=== PATIENT | female | born 1990 | race Caucasian/White ===

== ENCOUNTER 2021-03-11 09:09 | Observation (INO) | payer OTHER, SELFPAY ==
--- NOTE | ~2021-03-11 | CT_ITS ---
EXAMINATION: CT ABDOMEN AND PELVIS WITH CONTRAST CLINICAL INFORMATION: At pain, nausea and vomiting with diarrhea times months. Rule out IBD. COMPARISON: None TECHNIQUE: Multidetector volumetric images were obtained from the superior aspect of the liver through the pubic symphysis following administration 85 mL of Omnipaque 350 intravenous contrast. Sagittal and coronal reformatted images were obtained on the technologist's workstation. Oral contrast: No This CT examination was performed using dose optimization techniques as appropriate, variously including the following: *Automated exposure control *Adjustment of mA and/or kV according to patient size (this includes techniques or standardized protocols for targeted exams where dose is matched to indication/reason for exam; i.e. extremities or head) *Use of iterative reconstruction technique DLP: 360 mGy-cm FINDINGS: LUNG BASES: 3 mm triangular subpleural nodule left lower lobe axial image 3/7. LIVER, GALLBLADDER, AND BILIARY TREE: The liver is normal in size, shape, and attenuation. 3 mm nodule right hepatic lobe axial image 6/3 rest of the liver is unremarkable. The gallbladder is unremarkable with no evidence of radiopaque gallstones, gallbladder wall thickening, or obvious pericholecystic inflammatory changes. PANCREAS: Unremarkable. SPLEEN: Unremarkable. ADRENAL GLANDS: Unremarkable. KIDNEYS AND URETERS: The kidneys are normal in size, shape, and attenuation. No hydronephrosis, hydroureter, or calculi seen. No perinephric stranding. BLADDER: Unremarkable. GASTROINTESTINAL TRACT: Lack of oral contrast restricts evaluation of GI system. There is scattered stool and gas seen throughout the colon without any significant distention. There is an enlarged left lobe of small bowel with wall thickening and central hypodense area likely herniated proximal small bowel loop suspicious for intrasubstance. It is best visualized on axial image 50/3 and sagittal image 99/3.. ABDOMINAL WALL: No significant hernia is appreciated. LYMPH NODES: Normal. VASCULAR: Unremarkable. PELVIC VISCERA: There is small amount of free fluid in the pelvis. The uterus is anteverted no adnexal mass seen. There are small cysts in both ovaries. OSSEOUS STRUCTURES: Unremarkable. CT/CT abdomen pelvis w con IMPRESSION: Suspect small bowel intussusception left midabdomen. Lack of oral contraceptives restricts evaluation of small bowel and colon.
--- NOTE | ~2021-03-11 | XR_ITS ---
EXAMINATION: XR CHEST CLINICAL INFORMATION: Chest tightness. Rule out pneumonia. COMPARISON: None TECHNIQUE: 2 views of the chest were obtained. FINDINGS: The cardiac and mediastinal contours are normal. The lungs are well inflated. There is a 1 cm left upper lobe nodule. There are bilateral 1 cm symmetric nodules in the mid lung overlying the anterior fifth ribs that may represent nipple shadows. The lungs are otherwise clear. There is no pleural effusion or pneumothorax. Bony structures are unremarkable. XR/XR chest 2V IMPRESSION: 1 cm left upper lobe nodule. Follow-up chest CT scan recommended.
[2021-03-11 09:23] VITALS: BP 132/69; PULSE 55; RESP 12; TEMP 36.7; O2SAT 100; BMI 20.5
--- NOTE | 2021-03-11 10:29 | ECG_ITS ---
Test Reason : CHEST PAIN Blood Pressure : / mmHG Vent. Rate : 059 BPM Atrial Rate : 059 BPM P-R Int : 136 ms QRS Dur : 080 ms QT Int : 498 ms P-R-T Axes : 080 083 041 degrees QTc Int : 493 ms Sinus bradycardia Prolonged QT Abnormal ECG No previous ECGs available Referred By: Burak Camacho Electronically Signed By:IVAN RICHEY MD
--- NOTE | 2021-03-11 10:38 | ED_ITS ---
HPI - Nausea/Vomiting/Diarrhea General Chief complaint: Nausea/Vomiting/Diarrhea Stated complaint: vomitting chills Time Seen by Provider: 03/11/21 10:27 Source: patient and family ( mother, Anbael) Mode of arrival: ambulatory Limitations: no limitations History of Present Illness HPI Narrative: 30-year-old female who presents emergency department for evaluation of nausea, vomiting, diarrhea, chills, sweats and weight loss. The patient states she has been having episodes of nausea, vomiting and diarrhea for approximately 1 year. She states that she gets these episodes monthly. She states that she has been having the symptoms since March 02, 2021 ( 9 days). She states that her symptoms have gotten worse over the past 24 hours. She states that she has been Vomiting 2 to 3 times a day but over the past 24 hours she has had too numerous to count episodes of vomiting. she denies any blood in the emesis. She has had 1 episode of watery stool daily. She has denied blood or mucus noted in her diarrhea. She states that she has a diffuse burning sensation her abdomen which is constant but [id number] in intensity. She has also developed tightness in her chest which she states is worse with elijah thing, has been present for 1-2 days, intermittent and is mild. She denied fever but she states she has had sweats and chills. The patient states that the symptoms occur around her menstrual cycle. She denies any recent antibiotic use or recent travel. She states that her weight fluctuates but she has lost approximately 20 lb, she weighed 140 lb and now she weighs 120 lb. The patient does vape THC 5 times daily. Related Data Allergies Allergy/AdvReac Type Severity Reaction Status Date / Time No Known Allergies Allergy Verified 03/11/21 10:28 Review of Systems Review of Systems: Yes all other systems are reviewed and are negative [facility] Past Medical History [facility] Narrative: Past medical history: Anemia. Past surgical history: None. Social history: The patient vapes THC 5 times a day. She denies alcohol use. She denies any other drug use besides the THC. Social History Social History Alcohol intake: never Patient Tobacco Use Status: Never used Tobacco Use of substances other than those prescribed or required for medical reasons: Yes Substance Use Type: Marijuana Advance Directives: No Advance Directives Information Provided: No Patient : No Physical Exam Vital Signs: Vital Signs: Last Vital Signs Temp 98.6 F 03/11/21 13:08 Pulse 54 03/11/21 16:16 Resp 12 03/11/21 16:16 BP 108/60 03/11/21 16:16 Pulse Ox 99 03/11/21 16:16 Body Mass Index 20.5 Const: General: cooperative Orientation/consciousness: oriented to person and oriented to place Limitations: no limitations HENMT: Head: Yes normal to inspection, Yes normocephalic and Yes atraumatic Ears: external ears normal General nose exam: Normal external nose present Face and sinus: Yes normal facial exam Mouth: Normal oral and palatal mucosa present Throat: Yes posterior oropharynx normal Eyes: Periorbital: periorbital findings normal Eyelids: Yes eyelids normal Conjunctivae: conjunctivae normal Sclerae: sclerae normal Corneas: corneas normal Pupils: Equal, round and reactive pupils present Direct Ophthalmoscopy: normal light reflex Neck: Neck: Yes full ROM, Yes no lymphadenopathy, Yes no meningeal signs, Yes trachea midline and Yes supple Chest: Chest palpation & inspection: normal inspection of the chest and normal palpation of entire chest wall Resp: Effort & Inspection: normal respiratory effort and able to speak in complete sentences Auscultation: clear to auscultation bilaterally Cardio: Rate: regular rate Rhythm: regular rhythm Heart sounds: S1 normal heart sound present, S2 normal heart sound present and no murmurs GI: Inspection: Yes normal to inspection Palpation (GI): Soft to palpation, nontender, no guarding, not rigid and No hepatosplenomegaly present : General: Yes no CVA tenderness Back/Spine/Pelvis: Back: no CVA tenderness Cervical Spine: normal cervical lordosis Thoracic/Lumbar Spine: thoracic and lumbar spine normal to inspection Skin: Lesions: no lesions Rashes: no rashes Wounds: no wounds Neuro: General: oriented to person, oriented to place and no meningeal signs Cranial nerves: Yes CN's II-XII intact bilaterally and Yes Equal, round and reactive pupils present Cognition (Neuro): normal cognition Motor exam (neuro): 5/5 motor strength present throughout Extrem: General: Yes normal to inspection and Yes full ROM Psych: Appearance: well kempt Mental Status: mental status grossly normal Speech and movement: Normal speech and movement present Affect: normal affect Attitude: cooperative Thought process: Normal thought process present Thought content: Normal thought content present Course Course Course Narrative: 30-year-old female who presents emergency department for evaluation of nausea, vomiting, diarrhea, abdominal pain and weight loss. Patient has had episodic symptoms for 1 year, with the symptoms occurring monthly. The patient has had symptoms for approximately 9 days with too numerous to count episodes of vomiting over the past 24 hours. Patient also reports a 20 lb weight loss. The patient does vape THC 5 times daily. Physical examination was unremarkable. Differential includes but is not limited to inflammatory bowel disease and cyclic vomiting syndrome, cannabis hyperemesis syndrome. I did order CBC, CMP, lipase, stool cultures, stool C diff, Chest x- ray, EKG and CT scan of the abdomen pelvis with IV contrast. Patient's nausea and vomiting was treated with Reglan 10 mg IV and Benadryl 50 mg IV. Her abdominal discomfort was treated with Toradol 30 mg IV. 1644: the patient's abdominal pain did improve with the IV Toradol but her nausea had minimal improvement with IV Reglan and Benadryl. She was ordered to get Haldol 2.5 mg IV and Benadryl 25 mg IV with significant improvement of her symptoms.The patient's laboratory evaluation revealed low WBC of 4300 and anemia with an H&H of 10.2 and 34.4. Patient's chloride was high at 110 and bicarb was low at 21 this is consistent with her vomiting and diarrhea. The patient's CT seen in the abdomen pelvis with IV contrast is consistent with a left lower quadrant intussusception. I did discuss the patient's presentation with the on- call surgeon, Dr. Parnell ED evaluated the patient in the emergency department. He will admit the patient overnight for further treatment and diagnostic evaluation. MDM - Nausea/Vomiting/Diarrhea Lab Data Result diagrams: 03/11/21 10:51 03/11/21 10:51 Labs: Lab Results 03/11/21 03/11/21 03/11/21 Range/Units 10:51 10:51 10:51 WBC 4.3 L (4.8-10.8) X10*3/uL RBC 4.91 (4.20-5.50) X10*6/uL Hgb 10.2 L (12.0-16.0) g/dl Hct 34.4 L (37-47) % MCV 70.1 L (80-98) fL MCH 20.8 L (27.0-33.0) pg MCHC 29.7 L (31.0-35.0) g/dl RDW 15.8 (11.0-16.0) % Plt Count 263 (160-400) X10*3/uL MPV 9.4 (9.4-12.3) fL Immature Gran % (Auto) 0.2 (0.0-0.4) % Neut % (Auto) 83.0 H (45-73) % Lymph % (Auto) 8.9 L (20-40) % [place] % (Auto) 7.7 (2-11) % Eos % (Auto) 0.0 (0-4) % Baso % (Auto) 0.2 (0-2) % Lymph # (Auto) 0.4 L (1.2-4.9) X10*3/uL [place] # (Auto) 0.3 (0.1-1.2) X10*3/uL Eos # (Auto) 0.0 (0.0-0.4) X10*3/uL Baso # (Auto) 0.0 (0.0-0.2) X10*3/uL Abs Immat Gran (auto) 0.01 (0.00-0.03) X10*3/uL Absolute Neuts (auto) 3.5 (2.0-8.3) X10*3/uL Absolute Nucleated RBC 0.000 (0.0-0.012) X10*3/uL Nucleated RBC % (auto) 0.0 (0.0-0.2) /100WBC Sodium 141 (135-145) mmol/L Potassium 3.4 (3.3-5.1) mmol/L Chloride 110 H (96-108) mmol/L Carbon Dioxide 21 L (22-29) mmol/L Anion Gap 13 (12-20) BUN 16 (9-16) mg/dL Creatinine 0.77 (0.5-1.4) mg/dL Estim Creat Clear Calc 91.0 Estimated GFR > 60 Random Glucose 110 (60-115) mg/dL Calcium 9.6 (8.4-10.2) mg/dL Total Bilirubin 0.7 (0.0-1.0) mg/dL AST 13 (5-31) U/L ALT 8 (0-31) U/L Alkaline Phosphatase 58 (39-117) U/L Total Protein 7.3 (6.5-8.0) g/dL Albumin 4.5 (3.5-5.0) g/dL Lipase 12 (8-78) U/L Beta HCG, Quant < 2 mIU/mL Discharge Plan Discharge Clinical Impression: Intussusception intestine, Cyclic vomiting syndrome, Acute dehydration Patient Disposition: Admitted As Inpatient
[2021-03-11] MEDS: diphenhydrAMINE HCL 50 MG/ML VIAL IVPUSH (11:04)
[2021-03-11] MEDS: Ketorolac Tromethamine 30 MG/ML VIAL IVPUSH (11:05)
[2021-03-11] MEDS: 0.9 % Sodium Chloride 1,000 ML 999 ML IV ×2 (11:06→13:26)
[2021-03-11] MEDS: Metoclopramide HCl 10 MG/2 ML VIAL IVPUSH (11:08)
--- NOTE | 2021-03-11 11:09 | PC.NURSE ---
Pt vomiting. IV placed, labs obtained, and pt medicated for pain and nausea. IVF running.
[2021-03-11 11:17] LABS: MANUAL DIFF FLAG NO
[2021-03-11 11:20] LABS: Basophils Percent Auto 0.2 % (0-2); Hematocrit 34.4 % (37-47); Hemoglobin 10.2 g/dl (12.0-16.0); Imm Gran Abs Auto 0.01 X10*3/uL (0.00-0.03); Imm Gran Pct Auto 0.2 % (0.0-0.4); Lymphocytes Absolute Auto 0.4 X10*3/uL (1.2-4.9); Lymphocytes Percent Auto 8.9 % (20-40); Mean Corpuscular HGB Conc 29.7 g/dl (31.0-35.0); Mean Corpuscular Hemoglobin 20.8 pg (27.0-33.0); Mean Corpuscular Volume 70.1 fL (80-98); Mean Platelet Volume 9.4 fL (9.4-12.3); Monocytes Absolute Auto 0.3 X10*3/uL (0.1-1.2); Monocytes Percent Auto 7.7 % (2-11); Neutrophils Absolute Auto 3.5 X10*3/uL (2.0-8.3); Platelet Count 263 X10*3/uL (160-400); Red Blood Count 4.91 X10*6/uL (4.20-5.50); Red Cell Distribution Width 15.8 % (11.0-16.0); White Blood Count 4.3 X10*3/uL (4.8-10.8)
[2021-03-11 11:43] VITALS: BP 129/51; PULSE 60; RESP 20; TEMP 36.4; O2SAT 100
[2021-03-11 11:53] LABS: Alanine Aminotransferase 8 U/L (0-31); Albumin Level 4.5 g/dL (3.5-5.0); Alkaline Phosphatase 58 U/L (39-117); Anion Gap 13 (12-20); Aspartate Amino Transferase 13 U/L (5-31); Bilirubin Total 0.7 mg/dL (0.0-1.0); Blood Urea Nitrogen 16 mg/dL (9-16); Calcium 9.6 mg/dL (8.4-10.2); Carbon Dioxide 21 mmol/L (22-29); Chloride 110 mmol/L (96-108); Estimated Glomerular Filt Rate > 60; Glucose Random 110 mg/dL (60-115); Lipase 12 U/L (8-78); Potassium 3.4 mmol/L (3.3-5.1); Sodium 141 mmol/L (135-145); Total Protein 7.3 g/dL (6.5-8.0)
[2021-03-11 11:59] LABS: HCG Quantitative < 2 mIU/mL
[2021-03-11 13:08] VITALS: BP 151/60; PULSE 54; RESP 16; TEMP 37; O2SAT 100
[2021-03-11] MEDS: iohexoL 350 MG/ML 100 ML INFUS..BTL IV (13:10)
[2021-03-11] MEDS: diphenhydrAMINE HCL 50 MG/ML VIAL 25 MG IVPUSH (13:23)
[2021-03-11] MEDS: Haloperidol Lactate 5 MG/ML VIAL 2.5 MG IV (13:25)
--- NOTE | 2021-03-11 13:26 | PC.NURSE ---
Ptstill nauseated. IV haldol and benedryl given.
[2021-03-11 16:16] VITALS: BP 108/60; PULSE 54; RESP 12; O2SAT 99
--- NOTE | 2021-03-11 16:48 | P.HPGS_ITS ---
History of Present Illness History of Present Illness Date of Service: 03/12/21 Chief complaint: vomitting chills Narrative: Ana Luisa Mustafa is a 30 year old female who came to the ED today because of multiple episodes of vomitting. She says that she had vomitted about 5 times today before coming to the ED. She states she has been vomitting everyday for about almost 2 weeks now. She normally has about 2-3 episodes everyday. She does admit to regularly vaping marijuana and has done so for many months now. She says she does not have any abdominal pain. She says she has good BMs and continues to pass flatus. Review of Systems Constitutional: Constitutional: Denies chills and Denies fever(s) Cardiovascular: Cardiovascular: Denies chest pain, Denies dyspnea and Denies dyspnea on exertion Respiratory: Respiratory: Denies cough, Denies dyspnea and Denies dyspnea on exertion Gastrointestinal: Gastrointestinal: Denies hematochezia and Denies change in bowel habits Genitourinary: Genitourinary: Denies hematuria Musculoskeletal: Musculoskeletal: Denies back pain and Denies limited range of motion Neurologic: Denies focal weakness and Denies convulsions Psychiatric: Psychiatric: Denies depression and Denies mood swings PMFSH Past Medical History Medical History Marijuana abuse, continuous Social History Social History Alcohol intake: never Patient Tobacco Use Status: Never used Tobacco Smoked in Last 30 Days: No Patient Interested in Nicotine Replacement: No Patient Given Instructions on How to Stop Smoking: No Second Hand Smoke Exposure: No Use of substances other than those prescribed or required for medical reasons: Yes Substance Use Type: Marijuana Advance Directives: No Advance Directives Information Provided: No Advance Directives on File: No Patient : No service: No Current occupational status: employed Meds Allergies Allergy/AdvReac Type Severity Reaction Status Date / Time No Known Allergies Allergy Verified 03/11/21 10:28 Active Medications: Current Medications Generic Name Dose Route Start Last Admin Trade Name Freq PRN Reason Stop Dose Admin Promethazine HCl 6.25 mg/ 50.25 mls @ 201 mls/hr 03/11/21 16:45 Sodium Chloride IV Q6H PRN Nausea Lactated Ringer's 1,000 mls @ 80 mls/hr 03/11/21 17:00 Lr IVCONT .[id number] HENRY Ondansetron HCl 4 mg 03/11/21 16:45 Ondansetron Hcl 4 Mg/2 Ml Vial IVPUSH Q8H PRN nausea Sodium Chloride 3 ml 03/12/21 00:00 0.9 % Sodium Chloride Flush 3 Ml Syringe IVFLUSH QSHIFT HENRY Physical Exam Vital Signs: Vital Signs: Last Vital Signs Temp 98.6 F 03/11/21 13:08 Pulse 54 03/11/21 16:16 Resp 12 03/11/21 16:16 BP 108/60 03/11/21 16:16 Pulse Ox 99 03/11/21 16:16 Body Mass Index 20.5 Const: General: comfortable and no acute distress Orientation/cons ciousness: patient oriented x3 Neck: Neck: Yes no lymphadenopathy Resp: Auscultation: clear to auscultation bilaterally Cardio: Rhythm: regular rhythm GI: Other: not distended Palpation (GI): Soft to palpation, nontender and no guarding Neuro: General: patient oriented x3 Results Results Labs: Short CBC 03/11/21 Range/Units 10:51 WBC 4.3 L (4.8-10.8) X10*3/uL Hgb 10.2 L (12.0-16.0) g/dl Hct 34.4 L (37-47) % Plt Count 263 (160-400) X10*3/uL BMP 03/11/21 10:51 Sodium 141 Potassium 3.4 Chloride 110 H Carbon Dioxide 21 L BUN 16 Creatinine 0.77 Calcium 9.6 Liver Function 03/11/21 Range/Units 10:51 Total Bilirubin 0.7 (0.0-1.0) mg/dL AST 13 (5-31) U/L ALT 8 (0-31) U/L Alkaline Phosphatase 58 (39-117) U/L Albumin 4.5 (3.5-5.0) g/dL Abdominal x-ray: report reviewed and image reviewed CT scan - pelvis: report reviewed and image reviewed Assessment and Plan (1) Cyclic vomiting syndrome: Status: Acute She has had multiple episodes of vomitting today, but has had these episodes for almost 2 weeks. She this this comes in waves . She denies any abdominal pain. Her abdominal exam is very benign. SHe does not have any tenderness. Her Ct scan shows suggestion of intussusception. However, her overall clinical findings seem to be more consistent with cyclical vomitting secondary to marijuana vaping. She has responded well to Haldol given in the ED. It is best to admit her overnight for observation in view of her CT scan findi ngs. She currently has a very benign exam and is clinically not obstructed. I explained the plan to he and her mother at bedside and they understand. (2) Intussusception intestine: Status: Acute Her CT scan does not suggest an obstructive pattern. I explained to her that we often see this picture of intussusception with an uncertain clinical significance. She has very benign abdominal findings. the Ct scan image may be due to normal peristaltic movement of her small intestines. She will be on clear liquids tonight and reevaluate her in the morning. Quality Stroke Does the patient have a stroke diagnosis?: No VTE Prior VTE?: No VTE Risk Level:: Medical - low VTE Device Contraindication: N/A - Device Ordered VTE Drug Contraindication: Treatment Not Indicated Procedures Date of Service Date of Service: 03/11/21
[2021-03-11 17:31] VITALS: BP 102/49; PULSE 49; RESP 18; TEMP 36.8; O2SAT 99
--- NOTE | 2021-03-11 17:32 | PC.NURSE ---
Pt aware of admit plan. Resting comfortably. Denies nausea at this time. Ice chips given.
[2021-03-11] MEDS: Lactated Ringers 1,000 ML 80 ML IVCONT (17:38)
[2021-03-11 21:16] VITALS: BP 102/43; PULSE 57; RESP 17; TEMP 36.9; O2SAT 99
[2021-03-11] MEDS: ondansetron HCL 4 MG/2 ML VIAL IVPUSH (21:25)
[2021-03-11 21:41] LABS: Glucose Urine UA NEG (NEG); Leukocyte Esterase Urine NEG (NEG); Nitrite Urine NEG (NEG); Urine Blood NEG (NEG); Urine Ketones 40 MG/DL (NEG); Urine Protein NEG (NEG-TRACE)
[2021-03-11 21:42] LABS: Appearance Urine CLEAR; Color Urine YELLOW
[2021-03-11 22:24] LABS: COVID-19 Test Negative (Negative)
[2021-03-12] MEDS: Lactated Ringers 1,000 ML 80 ML IVCONT (05:57)
[2021-03-12 06:48] LABS: Hemoglobin 8.7 g/dl (12.0-16.0); Mean Corpuscular Volume 72.5 fL (80-98); Mean Platelet Volume 9.7 fL (9.4-12.3); Platelet Count 200 X10*3/uL (160-400); Red Blood Count 4.14 X10*6/uL (4.20-5.50); Red Cell Distribution Width 16.2 % (11.0-16.0); White Blood Count 3.7 X10*3/uL (4.8-10.8)
[2021-03-12 07:20] LABS: Anion Gap 10 (12-20); Blood Urea Nitrogen 13 mg/dL (9-16); Calcium 8.6 mg/dL (8.4-10.2); Carbon Dioxide 22 mmol/L (22-29); Chloride 113 mmol/L (96-108); Estimated Glomerular Filt Rate > 60; Glucose Random 89 mg/dL (60-115); Sodium 141 mmol/L (135-145)
[2021-03-12 08:00] VITALS: BP 112/60; PULSE 52; RESP 18; TEMP 36.9; O2SAT 98
[2021-03-12] MEDS: 0.9 % Sodium Chloride Flush 3 ML SYRINGE IVFLUSH (08:35)
--- NOTE | 2021-03-12 08:41 | PM.PNGS ---
Subjective Subjective Date of Service: 03/12/21 Interval history: feels well no vomitting since admission no abdl pain states she is ready to go home Physical Exam Vital Signs: Vital Signs: Last Vital Signs Temp 98.4 F 03/12/21 08:00 Pulse 52 03/12/21 08:00 Resp 18 03/12/21 08:00 BP 112/60 03/12/21 08:00 Pulse Ox 98 03/12/21 08:00 Body Mass Index 20.5 Laboratory Results - last 24 hr 03/11/21 03/11/21 03/11/21 10:51 10:51 10:51 WBC 4.3 L RBC 4.91 Hgb 10.2 L Hct 34.4 L MCV 70.1 L MCH 20.8 L MCHC 29.7 L RDW 15.8 Plt Count 263 MPV 9.4 Immature Gran % (A uto) 0.2 Neut % (Auto) 83.0 H Lymph % (Auto) 8.9 L [place] % (Auto) 7.7 Eos % (Auto) 0.0 Baso % (Auto) 0.2 Lymph # (Auto) 0.4 L [place] # (Auto) 0.3 Eos # (Auto) 0.0 Baso # (Auto) 0.0 Abs Immat Gran (au to) 0.01 Absolute Neuts (au to) 3.5 Absolute Nucleated RBC 0.000 Nucleated RBC % (a uto) 0.0 Sodium 141 Potassium 3.4 Chloride 110 H Carbon Dioxide 21 L Anion Gap 13 BUN 16 Creatinine 0.77 Estim Creat Clear Calc 91.0 Estimated GFR > 60 Random Glucose 110 Calcium 9.6 Total Bilirubin 0.7 AST 13 ALT 8 Alkaline Phosphata se 58 Total Protein 7.3 Albumin 4.5 Lipase 12 Beta HCG, Quant < 2 Urine Color Urine Appearance Urine pH Ur Specific Gravit y Urine Protein Urine Glucose (UA) Urine Ketones Urine Blood Urine Nitrite Ur Leukocyte Viviana ase COVID-19 ([facility]) COVID-19 Clin Com 03/11/21 03/11/21 03/12/21 21:29 21:58 06:15 WBC 3.7 L RBC 4.14 L Hgb 8.7 L Hct 30.0 L MCV 72.5 L MCH 21.0 L MCHC 29.0 L RDW 16.2 H Plt Count 200 MPV 9.7 Immature Gran % (A uto) Neut % (Auto) Lymph % (Auto) [place] % (Auto) Eos % (Auto) Baso % (Auto) Lymph # (Auto) [place] # (Auto) Eos # (Auto) Baso # (Auto) Abs Immat Gran (au to) Absolute Neuts (au to) Absolute Nucleated RBC 0.000 Nucleated RBC % (a uto) 0.0 Sodium Potassium Chloride Carbon Dioxide Anion Gap BUN Creatinine Estim Creat Clear Calc Estimated GFR Random Glucose Calcium Total Bilirubin AST ALT Alkaline Phosphata se Total Protein Albumin Lipase Beta HCG, Quant Urine Color YELLOW Urine Appearance CLEAR Urine pH 7.0 Ur Specific Gravit y 1.020 Urine Protein NEG Urine Glucose (UA) NEG Urine Ketones 40 Urine Blood NEG Urine Nitrite NEG Ur Leukocyte Viviana ase NEG COVID-19 (GUILLERMO) Negative COVID-19 Clin Com See Note 03/12/21 06:15 WBC RBC Hgb Hct MCV MCH MCHC RDW Plt Count MPV Immature Gran % (A uto) Neut % (Auto) Lymph % (Auto) [place] % (Auto) Eos % (Auto) Baso % (Auto) Lymph # (Auto) [place] # (Auto) Eos # (Auto) Baso # (Auto) Abs Immat Gran (au to) Absolute Neuts (au to) Absolute Nucleated RBC Nucleated RBC % (a uto) Sodium 141 Potassium 4.0 Chloride 113 H Carbon Dioxide 22 Anion Gap 10 L BUN 13 Creatinine 0.70 Estim Creat Clear Calc 100.0 Estimated GFR > 60 Random Glucose 89 Calcium 8.6 D Total Bilirubin AST ALT Alkaline Phosphata se Total Protein Albumin Lipase Beta HCG, Quant Urine Color Urine Appearance Urine pH Ur Specific Gravit y Urine Protein Urine Glucose (UA) Urine Ketones Urine Blood Urine Nitrite Ur Leukocyte Viviana ase COVID-19 (GUILLERMO) COVID-19 Clin Com Const: General: comfortable and no acute distress Resp: Effort & Inspection: normal respiratory effort Cardio: Rate: regular rate GI: Inspection: No distended Palpation (GI): Soft to palpation, not firm, nontender and no guarding Progress Note: A&P Assessment and plan (1) Cyclic vomiting syndrome: Status: Acute Assessment and Plan: completely asymptomatic clinically not obstructed, exam not c/w intussusception symptoms c/w cyclic vomitting from heavy cannabis vaping diet as tolerated Hg low - she says she has known anemia; no signs of bleeding repeat H/H plan to dc home later today if Hg steady Fall Risk Details Current Medications: Current Medications Generic Name Dose Route Start Last Admin Trade Name Freq PRN Reason Stop Dose Admin Promethazine HCl 6.25 mg/ 50.25 mls @ 201 mls/hr 03/11/21 16:45 Sodium Chloride IV Q6H PRN Nausea Lactated Ringer's 1,000 mls @ 80 mls/hr 03/11/21 17:00 03/12/21 05:57 Lr IVCONT 80 mls/hr .[id number] HENRY Administration Ondansetron HCl 4 mg 03/11/21 16:45 03/11/21 21:25 Ondansetron Hcl 4 Mg/2 Ml Vial IVPUSH 4 mg Q8H PRN Administration nausea Sodium Chloride 3 ml 03/12/21 00:00 03/12/21 08:35 0.9 % Sodium Chloride Flush 3 Ml Syringe IVFLUSH 3 ml QSHIFT HENRY Administration Time Spent With Patient Time: Total time spent is greater than 50% in coordination of care (as documented) at patient's floor/unit and/or counseling patient: Time with patient: 15 - 24 minutes Procedures Date of Service Date of Service: 03/12/21 Quality Stroke Does the patient have a stroke diagnosis?: No VTE Prior VTE?: No VTE Risk Level:: Medical - low VTE Device Contraindication: N/A - Device Ordered VTE Drug Contraindication: Treatment Not Indicated
[2021-03-12 11:04] LABS: Hemoglobin 8.7 g/dl (12.0-16.0)
--- NOTE | 2021-03-12 12:46 | MHC.CM.PN ---
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 MET WITH PATIENT SHE IS ACTIVE, EMPLOYED AND INDEPENDENT IN ALL ADLS AND MOBILITY , SHE HAS NO VNA NO DME SERVICES SHE DOES REPORTS USING [employer] BUT THIS REPEATED EMESIS HAS NEVER HAPPENED TO HER BEFORE , SHE REPORTED SHE USES [employer] FOR HER INCREASING ANXIETY , SHE AGREED TO REFERRAL TOT [facility] [employer] TEAM FOR REFERRAL RECOMMENDATIONS DISCHARGE HOME PLANS FOR MEETING WITH THE CARES TEAM SW REWARDING REFERRAL INFORMATION , (PATIENT INSTRUCTED TO [facility] THEY SEE HER, AND IF NOT THEN TO CALL THE MENTAL HEALTH SERVICES IN THE BACK OF HER INSURANCE CARD OR CHECK ON COMPUTER FOR LIST OF AGENCIES
--- NOTE | 2021-03-13 11:29 | P.DS_ITS ---
DS: Providers Provider Date of Service: 03/13/21 Date of admission: 03/11/21 16:44 Primary care physician: Juan Manuel العلي MD Consults: 03/12/21 10:59 Consult to Care Team Routine Comment: Reason for consultation: pTIENT WITH INCREASING ANXIETY AND WOULD LIKE TO TALK WITH SOMEONE referral DS: Diagnosis Discharge Diagnosis (1) Cyclic vomiting syndrome: Status: Acute Problem details: 30-year-old female admitted by the ER because of multiple as was the vomiting for about 10 days. Her history breast with significant for heavy marijuana vaping. She had a CAT scan done showing what appeared to be question of intussusception although clinically, she was not obstructed. Furthermore, her CAT scan did not show any suggestion of small-bowel obstruction proximal to this intussusception. She had a very benign exam as well. She was admitted and kept on clear liquids. She was given Haldol in the ER for her cyclic vomiting syndrome in view of marijuana vaping. She improved significantly. She continue d to do well and her diet was advanced the following day. She tolerated this and she was therefore discharged. At the time of her discharge, she had remained asymptomatic and had good GI functions. (2) Intussusception intestine: Status: Acute Problem details: Her CAT scan was suggestive of small-bowel intussusception. However clinically, she was unobstructed and had a very benign exam without any pain or tenderness. It was likely that her CAT scan image was due to peristalsis of the small intestine. (3) Anemia: Status: Acute Problem details: she has a known history of anemia. Her hemoglobin was low but stable during her hospital stay. She was advised to discuss this again with her primary care physician. DS: Summary Time Spent with Patient Time attestation: Total time spent providing and/or coordinating discharge services: Discharge coordination time: Less than 30 minutes Quality: Stroke Does the patient have a stroke diagnosis?: No Physical Exam Vital Signs: Vital Signs: Last Vital Signs Temp 98.4 F 03/12/21 08:00 Pulse 52 03/12/21 08:00 Resp 18 03/12/21 08:00 BP 112/60 03/12/21 08:00 Pulse Ox 98 03/12/21 08:00 Body Mass Index 20.5 Const: General: comfortable and no acute distress Orientation/consciousness: patient oriented x3 Neck: Neck: Yes no lymphadenopathy Resp: Auscultation: clear to auscultation bilaterally Cardio: Rhythm: regular rhythm GI: Palpation (GI): Soft to palpation, nontender and no guarding Neuro: General: patient oriented x3 DS: Data Data Completed and Pending Completed studies during hospitalization [Text1]: CT scan of the abdomen pelvis Discharge Plan Discharge Patient Disposition: Home, Self-Care Referrals: Juan Manuel العلي MD [Primary Care Provider] - 1 Week Discharge Orders: Discharge Order (Routine); Ordered 03/12/21 Ordered By: Ceasar Parnell Diet: advance to usual diet Activity on Discharge: As tolerated Stand Alone Forms: Patient Portal Discharge page Care Plan Goals: cut down on cannabis use Health Concerns: cyclical vomitting from cannabis vaping Plan of Treatment: ffup with PCP Assessment: doing well, symptoms resolved Discharge Date/Time: 03/12/21 13:32
== END 2021-03-12 13:32 | disposition home or self-care (01) ==
LOC: HO.ED 16:48 → HO.EDOVER 21:27 → HO.S3 23:25
PROVIDERS: Admitting Provider Surgery; Emergency Provider Emergency Medicine Emergency Medical Services; PCP Internal Medicine; Visit Provider Surgery
DX: R11.15 Cyclical vomiting syndrome unrelated to migraine (principal); U07.0 Vaping-related disorder; F12.10 Cannabis abuse, uncomplicated; K56.1 Intussusception; D64.9 Anemia, unspecified; E86.0 Dehydration; R91.1 Solitary pulmonary nodule; R07.9 Chest pain, unspecified; R00.1 Bradycardia, unspecified; I45.81 Long QT syndrome; N83.202 Unspecified ovarian cyst, left side; N83.201 Unspecified ovarian cyst, right side
CPT/HCPCS: 36415; 71046; 74177; 80048; 80053; 81003; 83690; 84702; 85014; 85018; 85025; 85027; 87635; 93005; 96361; 96374; 96375; 96376; 99218; 99285; J1200; J1885; J2405; J2765; Q9967

== ENCOUNTER 2021-07-07 15:36 | Emergency (ER) | payer OTHER, SELFPAY ==
[2021-07-07 15:46] VITALS: BP 143/88; PULSE 52; RESP 18; TEMP 36.6; O2SAT 100; BMI 21.6
--- NOTE | 2021-07-07 16:26 | ED_ITS ---
HPI - Abdominal Pain General Chief Complaint: Abdominal Pain Stated Complaint: ?Dehydrated Time Seen by Provider: 07/07/21 16:15 Source: patient Mode of arrival: ambulatory Limitations: no limitations History of Present Illness HPI narrative: 30-year-old female who presents emergency department for evaluation of nausea, vomiting and abdominal pain that began this morning at 6:00 a.m.. Patient states that she has vomited multiple times, too numerous to count the episodes. She has not noticed any blood in the vomiting. She is complaining of lower abdominal burning like pain which is constant and is 4/10 at its worst. She denied fever, chills, chest pain, shortness of breath, frequency, urgency or dysuria. She has had no change in bowel movements. The patient was seen on March 03, 2021 for recurrent episodes of vomiting x1 year with a 20 lb weight loss. The patient at that time was felt to have cyclic vomiting syndrome secondary to marijuana use. The patient did have a possible intussusception seen on a CT scan done however clinically her symptoms did not appear to be consistent with intussusception. She was admitted overnight to the on-call surgeon, Dr. Parnell, kept on clear liquids improved and was discharged the next day. Patient states that she has significantly cut down on the amount of marijuana that she uses however she continues to vape marijuana 2-3 times per week and she will vape up to 6 times a day. Related Data Previous Rx's Medication Instructions Recorded ondansetron 4 mg disintegrating 4 mg PO Q6-8H PRN #14 tab 07/07/21 tablet Allergies Allergy/AdvReac Type Severity Reaction Status Date / Time No Known Allergies Allergy Verified 07/07/21 15:46 Review of Systems Review of Systems Yes all other systems are reviewed and are negative Physical Exam Vital Signs: Vital Signs: Last Vital Signs Temp 97.9 F 07/07/21 15:46 Pulse 76 07/07/21 18:09 Resp 16 07/07/21 18:09 BP 143/88 H 07/07/21 15:46 Pulse Ox 99 07/07/21 18:09 Body Mass Index 21.6 Const: Other: Very pleasant and cooperative female, awake and alert, in no distress, she is not actively vomiting at this time, she does appear to be pale HENMT: Head: Yes normal to inspection, Yes normocephalic and Yes atraumatic Ears: external ears normal General nose exam: Normal external nose present Face and sinus: Yes normal facial exam Mouth: Normal oral and palatal mucosa present Throat: Yes posterior oropharynx normal Eyes: General: appearance normal, both eyes and all related structures Pupils: Equal, round and reactive pupils present Neck: Neck: Yes normal visual inspection, Yes no lymphadenopathy, Yes trachea midline and Yes supple Chest: Chest palpation & inspection: normal inspection of the chest and normal palpation of entire chest wall Resp: Effort & Inspection: normal respiratory effort and able to speak in complete sentences Auscultation: clear to auscultation bilaterally Cardio: Rate: regular rate Rhythm: regular rhythm Heart sounds: S1 normal heart sound present, S2 normal heart sound present and no murmurs GI: Inspection: Yes normal to inspection Palpation (GI): Soft to palpation, Tenderness to palpation present (GI) in the LLQ (Mild), in the RLQ (Mild) and suprapubicly (Moderate) and no guarding Auscultation: normal bowel sounds : General: Yes no CVA tenderness Back/Spine/Pelvis: Back: no CVA tenderness Skin: General skin exam: no rashes or lesions noted Neuro: Cranial nerves: Yes CN's II-XII intact bilaterally and Yes Equal, round and reactive pupils present Cognition (Neuro): normal cognition Motor exam (neuro): 5/5 motor strength present throughout Extrem: General: Yes normal to inspection Psych: Appearance: grossly normal Speech and movement: Normal speech and movement present Affect: normal affect Attitude: cooperative Thought process: Normal thought process present Thought content: Normal thought content present Course Course Course Narrative: 30-year-old female who presents emergency department for evaluation of nausea, vomiting and abdominal pain which began this morning. The patient states that she has vomited multiple times today, too numerous to count. The patient does have a history of marijuana use disorder and cyclic vomiting syndrome start to be consistent with cannabis hyperemesis syndrome. patient has had similar presentations in the past. Her vital signs were normal. Abdominal exam did reveal mild lower abdominal tenderness with no abdominal distension and normoactive bowel sounds. I do not think that she has a bowel obstruction or intussusception is the cause of her pain and symptoms. The patient was treated last time with Haldol 2.5 mg IV and Benadryl 5 mg IV with good results therefore I repeated this treatment. She was also ordered to get normal saline x1 L. I will check a CBC, CMP, urinalysis, urine drug screen, urine test, lipase. 1838: The patient is feeling significant better after the above treatment. Laboratory evaluation is consistent with a metabolic acidosis with a low bicarb of 18 an elevated lactic acid of 3.4. I did discuss cannabis hyperemesis syndrome with the patient. The patient will be discharged home with a presc ription for Zofran ODT 4 mg every 6-8 hours as needed for nausea and vomiting. She was also advised to take Benadryl 50 mg orally whenever she takes Zofran to see if this improves the antiemetic effect. The patient was given printed and verbal instructions and discharged home. MDM - Abdominal Pain Lab Data Result diagrams: 07/07/21 17:10 07/07/21 17:10 Labs: Lab Results 07/07/21 07/07/21 07/07/21 Range/Units 17:10 17:10 17:10 WBC 6.7 (4.8-10.8) X10*3/uL RBC 4.49 (4.20-5.50) X10*6/uL Hgb 11.1 L D (12.0-16.0) g/dl Hct 35.2 L (37-47) % MCV 78.4 L (80-98) fL MCH 24.7 L (27.0-33.0) pg MCHC 31.5 (31.0-35.0) g/dl RDW 14.2 (11.0-16.0) % Plt Count 226 (160-400) X10*3/uL MPV 9.6 (9.4-12.3) fL Immature Gran % (Auto) 0.3 (0.0-0.4) % Neut % (Auto) 90.6 H (45-73) % Lymph % (Auto) 6.0 L (20-40) % Davidson % (Auto) 3.0 (2-11) % Eos % (Auto) 0.0 (0-4) % Baso % (Auto) 0.1 (0-2) % Lymph # (Auto) 0.4 L (1.2-4.9) X10*3/uL Davidson # (Auto) 0.2 (0.1-1.2) X10*3/uL Eos # (Auto) 0.0 (0.0-0.4) X10*3/uL Baso # (Auto) 0.0 (0.0-0.2) X10*3/uL Abs Immat Gran (auto) 0.02 (0.00-0.03) X10*3/uL Absolute Neuts (auto) 6.1 (2.0-8.3) X10*3/uL Absolute Nucleated RBC 0.000 (0.0-0.012) X10*3/uL Nucleated RBC % (auto) 0.0 (0.0-0.2) /100WBC Smear Tech's Comments VERIFIED Sodium 141 (135-145) mmol/L Potassium 4.5 (3.3-5.1) mmol/L Chloride 111 H (96-108) mmol/L Carbon Dioxide 18 L (22-29) mmol/L Anion Gap 17 (12-20) BUN 19 H (9-16) mg/dL Creatinine 0.82 (0.5-1.4) mg/dL Estim Creat Clear Calc 89.4 Estimated GFR > 60 Random Glucose 157 H (60-115) mg/dL Lactic Acid 3.4 H* (0.5-2.0) mmol/L Calcium 10.0 D (8.4-10.2) mg/dL Total Bilirubin 0.6 (0.0-1.0) mg/dL AST 16 (5-31) U/L ALT 13 (0-31) U/L Alkaline Phosphatase 60 (39-117) U/L Total Protein 7.7 (6.5-8.0) g/dL Albumin 4.7 (3.5-5.0) g/dL Lipase 6 L (8-78) U/L Discharge Plan Discharge Clinical Impression: Cyclic vomiting syndrome, Marijuana abuse, continuous, Acute dehydration Abdominal pain Qualifiers: Abdominal location: lower abdomen, unspecified Qualified Code(s): R10.30 - Lower abdominal pain, unspecified Patient Disposition: Home, Self-Care Instructions: Cyclic Vomiting Syndrome (ED) Additional Instructions: Your blood work was consistent with dehydration and with vomiting multiple times otherwise was unremarkable. Your presentation is consistent with cyclic vomiting syndrome which can sometimes be caused by frequent marijuana use. You need to stop using marijuana for 2 months and this should improve your symptoms. Take Zofran ODT 4 mg pills, 1 pill dissolved in your mouth every 8 hours as needed for nausea and vomiting. Also take Benadryl 25 mg, 2 pills (50 mg) every time you taking Zofran, this will help the antinausea effect of the Zofran. Follow-up with your doctor in 2 days. Please return to the emergency department if your symptoms get worse or if you develop any symptoms that are concerning to you. Prescriptions: New ondansetron 4 mg tablet,disintegrating 4 mg PO Q6-8H PRN (Reason: nausea and vomiting) Qty: 14 RF: 0 PMFSH Past Medical History PMFSH Narrative: Past medical history: Anemia, marijuana use disorder, cyclic vomiting syndrome. Past surgical history: None. Social history: The patient denies tobacco use. She states she rarely drinks alcohol. She had 1 glass of wine yesterday. The patient continues to vape THC (marijuana) 2 to 3 times a week and when she vape THC she vapes at least 6 times a day. Medical History Anemia Marijuana abuse, continuous Social History Social History Alcohol intake: never Patient Tobacco Use Status: Never used Tobacco Second Hand Smoke Exposure: No Substance Use Type: Marijuana Advance Directives: No Advance Directives Information Provided: No Patient : No service: No Current occupational status: employed
[2021-07-07] MEDS: Ketorolac Tromethamine 15 MG/ML VIAL 30 MG IVPUSH (17:18)
[2021-07-07] MEDS: 0.9 % Sodium Chloride 1,000 ML 999 ML IV ×2 (17:18→18:08)
[2021-07-07] MEDS: diphenhydrAMINE HCL 50 MG/ML VIAL IVPUSH (17:18)
[2021-07-07 17:19] LABS: Basophils Percent Auto 0.1 % (0-2); Hematocrit 35.2 % (37-47); Hemoglobin 11.1 g/dl (12.0-16.0); Imm Gran Abs Auto 0.02 X10*3/uL (0.00-0.03); Imm Gran Pct Auto 0.3 % (0.0-0.4); Lymphocytes Absolute Auto 0.4 X10*3/uL (1.2-4.9); MANUAL DIFF FLAG SCAN; Mean Corpuscular HGB Conc 31.5 g/dl (31.0-35.0); Mean Corpuscular Hemoglobin 24.7 pg (27.0-33.0); Mean Corpuscular Volume 78.4 fL (80-98); Mean Platelet Volume 9.6 fL (9.4-12.3); Monocytes Absolute Auto 0.2 X10*3/uL (0.1-1.2); Neutrophils Absolute Auto 6.1 X10*3/uL (2.0-8.3); Neutrophils Percent Auto 90.6 % (45-73); Platelet Count 226 X10*3/uL (160-400); Red Blood Count 4.49 X10*6/uL (4.20-5.50); Red Cell Distribution Width 14.2 % (11.0-16.0); SCAN SMEAR FLAG 1; White Blood Count 6.7 X10*3/uL (4.8-10.8)
[2021-07-07] MEDS: Haloperidol Lactate 5 MG/ML VIAL 2.5 MG IVPUSH (17:19)
[2021-07-07 17:31] LABS: Lactic Acid 3.4 mmol/L (0.5-2.0)
[2021-07-07 17:33] LABS: Alanine Aminotransferase 13 U/L (0-31); Albumin Level 4.7 g/dL (3.5-5.0); Alkaline Phosphatase 60 U/L (39-117); Anion Gap 17 (12-20); Aspartate Amino Transferase 16 U/L (5-31); Bilirubin Total 0.6 mg/dL (0.0-1.0); Blood Urea Nitrogen 19 mg/dL (9-16); Carbon Dioxide 18 mmol/L (22-29); Chloride 111 mmol/L (96-108); Creatinine Clr Calc Pharmacy 89.4; Estimated Glomerular Filt Rate > 60; Glucose Random 157 mg/dL (60-115); Lipase 6 U/L (8-78); Potassium 4.5 mmol/L (3.3-5.1); Sodium 141 mmol/L (135-145); Total Protein 7.7 g/dL (6.5-8.0)
[2021-07-07 17:41] LABS: SLIDE REVIEW VERIFIED
[2021-07-07 18:09] VITALS: PULSE 76; RESP 16; O2SAT 99
[2021-07-07 19:13] LABS: Reflex Lactate? Lactic Acid Added
== END 2021-07-07 19:22 | disposition home or self-care (01) ==
PROVIDERS: Emergency Provider Emergency Medicine Emergency Medical Services; PCP Internal Medicine
DX: R11.15 Cyclical vomiting syndrome unrelated to migraine (principal); R10.30 Lower abdominal pain, unspecified; F12.188 Cannabis abuse with other cannabis-induced disorder; Z79.899 Other long term (current) drug therapy
CPT/HCPCS: 36415; 80053; 83605; 83690; 85025; 96361; 96374; 96375; 99284; J1200; J1885